=== PATIENT | female | born 1960 | race Caucasian/White ===

== ENCOUNTER 2022-01-26 11:07 | Emergency (ER) | payer OTHER ==
[~2022-01-26] VITALS: Ht 165.1 cm; Wt 70.3 kg
--- NOTE | 2022-01-26 11:37 | NUR ---
BIB FRINED C/O TWISTED HER LEFT ANKLE AFTER HE TRIPPED GOING DOWN THE STAIRS. PAIN IS 9/[address] LEES AT BEDSIDE. AWAITING MD ORDERS.
--- NOTE | 2022-01-26 12:26 | NUR ---
PT'S PRIMARY MD'S CONTACT INFO [phone], PRESS 0 Addendum: 01/26/22 at [address] AMOS
[2022-01-26] MEDS ORDERED: HYDR-4303 PO (12:56)
[2022-01-26] MEDS ORDERED: IBUP-1955 PO (12:56)
[2022-01-26] MEDS ORDERED: KETOROLAC TROMETHAMINE 15 MG/ML VIAL ONE (13:06)
[2022-01-26 13:17] VITALS: BP 146/88
[2022-01-26] MEDS ORDERED: KETOROLAC TROMETHAMINE INJ 30 MG/ML VIAL IM ONE (13:30)
== END 2022-01-26 13:17 | disposition home or self-care (01) ==
LOC: ER 11:30
DX: S82.832A Other fracture of upper and lower end of left fibula, initial encounter for closed fracture (principal); M19.90 Unspecified osteoarthritis, unspecified site; X50.1XXA Overexertion from prolonged static or awkward postures, initial encounter; Y93.89 Activity, other specified; Y92.89 Other specified places as the place of occurrence of the external cause; Y99.8 Other external cause status
CPT/HCPCS: 99283; 29515; 96372; 73610; J1885